=== PATIENT | female | born 1935 | race Caucasian/White ===

== ENCOUNTER 2018-05-31 05:17 | Observation (INO) | payer OTHER ==
[~2018-05-31] VITALS: Ht 152.4 cm; Wt 114.4 kg
[~2018-05-31 05:17] MED LIST: ANT12.5 PO; ASPIR 8181 MG PO; BACTRIM DS1 TAB PO; COZAAR100 MG PO; DICLOFENAC SOD75 M1 PO; GLIPIZIDE2.5 M1 PO; LOPRESSOR100 MG PO; MAC100 PO; OMEPRAZOLE DR20 M1 PO; SIMVASTATIN40 M1 PO
[2018-05-31 05:29] VITALS: Ht 152.4 cm; Wt 114.4 kg
[2018-05-31 06:54] LABS: BASOPHIL % 0.5 % (0-2); PLATELET COUNT 268 x10^3mcL (130-400)
[2018-05-31 07:01] LABS: RED CELL DISTRIBUTION WIDTH 16.3 % (11.5-14.5)
[2018-05-31 07:14] LABS: CALCIUM 8.2 mg/dL (8.5-10.1); CARBON DIOXIDE 27.3 mmol/L (21-32); CHLORIDE SERUM 98 mmol/L (98-107); CREATININE SERUM 0.7 mg/dL (0.6-1.0); GLUCOSE SERUM 150 mg/dL (74-106); POTASSIUM SERUM 4.1 mmol/L (3.5-5.1); SODIUM SERUM 131 mmol/L (136-145)
[2018-05-31 07:19] LABS: ALKALINE PHOSPHATASE 73 U/L (46-116); ALT/SGPT 22 U/L (14-59); AST/SGOT 22 U/L (15-37); BILIRUBIN TOTAL 0.14 mg/dL (0.20-1.00); LIPASE 182 IU/L (73-393); TOTAL PROTEIN, SERUM 6.5 g/dL (6.4-8.2)
[2018-05-31 07:46] LABS: ALBUMIN 2.8 g/dL (3.4-5.0)
[2018-05-31] MEDS ORDERED: EFFIENT10 M2 PO (08:11)
[2018-05-31] MEDS ORDERED: ARICEPT5 MG PO (08:13)
[2018-05-31] MEDS ORDERED: LOSARTAN POTASS50 M1 PO (08:13)
[2018-05-31] MEDS ORDERED: METOPROLOL TART25 M1 PO (08:14)
[2018-05-31 09:30] LABS: UA SPECIFIC GRAVITY >=1.030 (1.005-1.035); microscopic required? YES; urine erythrocyte TRACE (NEGATIVE)
[2018-05-31 10:37] VITALS: BP 101/57
[2018-05-31 14:35] VITALS: BP 100/49
[2018-05-31 18:11] VITALS: BP 100/49
== END 2018-05-31 18:48 | disposition home or self-care (01) | DRG 194 ==
LOC: ED 05:17 → DU 08:52
PROVIDERS: Emergency Medicine; ADMIT Internal Medicine
DX: J18.9 Pneumonia, unspecified organism (principal); E87.1 Hypo-osmolality and hyponatremia; J40 Bronchitis, not specified as acute or chronic; I10 Essential (primary) hypertension; E11.9 Type 2 diabetes mellitus without complications; I25.10 Atherosclerotic heart disease of native coronary artery without angina pectoris; E78.5 Hyperlipidemia, unspecified; I25.2 Old myocardial infarction; Z98.61 Coronary angioplasty status
CPT/HCPCS: 83880; 87804; G0378; J0696; J1956; J7030

== ENCOUNTER 2019-07-24 16:09 | Emergency (ER) | payer OTHER ==
[~2019-07-24] VITALS: Ht 162.6 cm; Wt 81.6 kg
[~2019-07-24 16:09] MED LIST changes: +ARICEPT5 MG PO; +EFFIENT10 M2 PO; +LOSARTAN POTASS50 M1 PO; +METOPROLOL TART25 M1 PO
[2019-07-24 16:22] VITALS: Ht 162.6 cm; Wt 81.6 kg
[2019-07-24 17:11] LABS: CALCIUM 8.7 mg/dL (8.5-10.1); CARBON DIOXIDE 24.9 mmol/L (21-32); CHLORIDE SERUM 106 mmol/L (98-107); CREATININE SERUM 0.6 mg/dL (0.6-1.0); GLUCOSE SERUM 142 mg/dL (74-106); POTASSIUM SERUM 4.5 mmol/L (3.5-5.1); SODIUM SERUM 137 mmol/L (136-145)
[2019-07-24 17:17] LABS: ALKALINE PHOSPHATASE 80 U/L (46-116); ALT/SGPT 29 U/L (14-59); AST/SGOT 24 U/L (15-37); BILIRUBIN TOTAL 0.16 mg/dL (0.20-1.00); TOTAL PROTEIN, SERUM 6.3 g/dL (6.4-8.2)
[2019-07-24 17:25] LABS: BASOPHIL % 0.1 % (0-2); PLATELET COUNT 333 x10^3mcL (130-400)
[2019-07-24 17:27] LABS: ALBUMIN 2.6 g/dL (3.4-5.0)
[2019-07-24 17:28] LABS: RED CELL DISTRIBUTION WIDTH 23.4 % (11.5-14.5)
[2019-07-24 19:18] VITALS: BP 107/53
== END 2019-07-24 19:18 | disposition home or self-care (01) ==
LOC: ED 16:09
PROVIDERS: Emergency Medicine
DX: I50.9 Heart failure, unspecified (principal); I11.0 Hypertensive heart disease with heart failure; R11.2 Nausea with vomiting, unspecified; R51 Headache
CPT/HCPCS: 36415; 83880; 87804; Q0092